=== PATIENT | male | born 1960 | race Caucasian/White ===

== ENCOUNTER 2021-02-06 10:00 | Emergency (ER) | payer BC, MEDICARE ==
[~2021-02-06] VITALS: Ht 185.4 cm; Wt 128.5 kg
[2021-02-06] MEDS ORDERED: IV NORMAL SALINE 1000ML BAG 1,000 ML IV SCH (10:30)
[2021-02-06] MEDS ORDERED: ONDANSETRON PF 4 MG/2 ML VIAL. IVP ONE (10:30)
[2021-02-06] MEDS ORDERED: MORPHINE SULFATE 10 MG/ML VIAL. IV ONE (10:30)
[2021-02-06 10:45] LABS: BASO # 0.1 x10^3/uL (0.0-0.2); BASO % 1 % (0-3); EOS # 0.1 x10^3/uL (0.0-0.7); EOS % 1 % (0-3); HEMATOCRIT 46.2 % (39.0-53.0); HEMOGLOBIN 16.3 g/dL (13.0-17.5); LYMPH # 1.8 x10^3/uL (1.0-4.8); LYMPH % 22 % (24-48); MEAN CORPUSCULAR HEMOGLOBIN 31 pg (25-35); MEAN CORPUSCULAR HGB CONC 35 g/dL (31-37); MEAN CORPUSCULAR VOLUME 88 fL (79-100); MONO # 0.7 x10^3/uL (0.0-1.1); MONO % 8 % (0-9); NEUT # 5.6 x10^3/uL (1.8-7.7); NEUT % 68 % (31-73); PLATELET COUNT 160 x10^3/uL (140-400); RED BLOOD COUNT 5.24 x10^6/uL (4.30-5.70); RED CELL DISTRIBUTION WIDTH 13.8 % (11.5-14.5); WHITE BLOOD COUNT 8.3 x10^3/uL (4.0-11.0)
[2021-02-06 10:52] LABS: CALCIUM 9.2 mg/dL (8.5-10.1); POTASSIUM 3.8 mmol/L (3.5-5.1)
--- NOTE | 2021-02-06 10:53 | PHYS DOC ---
Past Medical History Past Medical History: Depression, Diabetes-Type II, Hypertension Past Surgical History: Other Additional Past Surgical Histo: laproscopic hernia repair, L knee scope, L ankle and colon resection Smoking Status: Never Smoker Alcohol Use: Occasionally Drug Use: None General Adult EDM: Chief Complaint: ABDOMINAL PAIN HPI: HPI: Patient is a 60 year old male history of hypertension, diabetes and depression who presents with 4-day history of right lower quadrant abdominal pain. Patient states his pain is constant, sharp and cramping 910 without radiation. The pain is limited to the right lower quadrant and has not been migratory in nature. Patient reports associated nausea and anorexia, but denies emesis, diarrhea and constipation. He states he last ate a little bit yesterday, but otherwise has not had any food or drink. Patient denies family history of appendicitis. He reports he has not taken any of his medications today, including his blood pressure medication. Patient has no other complaints at this time. Review of Systems: Review of Systems: Constitutional: Denies fever or chills. Respiratory: Denies cough or shortness of breath. Cardiovascular: Denies chest pain or edema. GI: See HPI : Denies dysuria, hematuria. Musculoskeletal: Denies back pain or joint pain. Integument: Denies rash or other skin lesion. Neurologic: Denies headache, focal weakness or sensory changes. Endocrine: Denies polyuria or polydipsia. Psychiatric: Denies current feelings depression or anxiety. Heart Score: C/O Chest Pain: No Current Medications: Current Medications Medications (Trade) Dose Ordered Sig/[facility] Start Time Stop Time Status Last Admin Dose Admin Morphine Sulfate (Morphine Sulfate) 10 mg 1X ONCE 02/06/21 10:30 02/06/21 10:31 DC 02/06/21 10:38 10 MG Ondansetron HCl (Zofran) 4 mg 1X ONCE 02/06/21 10:30 02/06/21 10:31 DC 02/06/21 10:39 4 MG Sodium Chloride 1,000 ml @ 1,000 mls/hr Q1H 02/06/21 10:30 02/06/21 11:29 02/06/21 10:37 1,000 MLS/HR Allergies: Allergies: Allergies Coded Allergies Type Severity Reaction Last Updated Verified No Known Drug Allergies 11/20/13 No Physical Exam: PE: Constitutional: Well developed, well nourished, no acute distress, non-toxic appearance. HENT: Normocephalic, atraumatic, bilateral external ears normal, oropharynx moist, nose normal. Eyes: PERRLA, EOMI, conjunctiva normal, no discharge. Neck: Normal range of motion, no tenderness, supple, no stridor. Cardiovascular: Elevated heart rate regular rhythm, no murmur. Lungs & Thorax: Decreased breath sounds diffuse throughout lung casey. No wheezing rales or rhonchi appreciated. Abdomen: Bowel sounds normal, soft, right lower quadrant tenderness, McBurney's point tenderness, negative Rovsing sign, no peritoneal signs, no masses, no pulsatile masses. Skin: Warm, dry, no erythema, no rash. Back: No tenderness, no CVA tenderness. Extremities: No tenderness, no cyanosis, no clubbing, ROM intact, no edema. Current Patient Data: Labs: Laboratory Tests Test 02/06/21 10:20 02/06/21 12:50 White Blood Count 8.3 x10^3/uL (4.0-11.0) Red Blood Count 5.24 x10^6/uL (4.30-5.70) Hemoglobin 16.3 g/dL (13.0-17.5) Hematocrit 46.2 % (39.0-53.0) Mean Corpuscular Volume 88 fL (79-100) Mean Corpuscular Hemoglobin 31 pg (25-35) Mean Corpuscular Hemoglobin Concent 35 g/dL (31-37) Red Cell Distribution Width 13.8 % (11.5-14.5) Platelet Count 160 x10^3/uL (140-400) Neutrophils (%) (Auto) 68 % (31-73) Lymphocytes (%) (Auto) 22 % (24-48) Monocytes (%) (Auto) 8 % (0-9) Eosinophils (%) (Auto) 1 % (0-3) Basophils (%) (Auto) 1 % (0-3) Neutrophils # (Auto) 5.6 x10^3/uL (1.8-7.7) Lymphocytes # (Auto) 1.8 x10^3/uL (1.0-4.8) Monocytes # (Auto) 0.7 x10^3/uL (0.0-1.1) Eosinophils # (Auto) 0.1 x10^3/uL (0.0-0.7) Basophils # (Auto) 0.1 x10^3/uL (0.0-0.2) Sodium Level 137 mmol/L (136-145) Potassium Level 3.8 mmol/L (3.5-5.1) Chloride Level 97 mmol/L (98-107) Carbon Dioxide Level 28 mmol/L (21-32) Anion Gap 12 (6-14) Blood Urea Nitrogen 31 mg/dL (8-26) Creatinine 2.0 mg/dL (0.7-1.3) Estimated GFR (Cockcroft-Gault) 34.0 BUN/Creatinine Ratio 16 (6-20) Glucose Level 166 mg/dL (70-99) Lactic Acid Level 2.0 mmol/L (0.4-2.0) Calcium Level 9.2 mg/dL (8.5-10.1) Total Bilirubin 0.8 mg/dL (0.2-1.0) Aspartate Amino Transf (AST/SGOT) 13 U/L (15-37) Alanine Aminotransferase (ALT/SGPT) 23 U/L (16-63) Alkaline Phosphatase 100 U/L (46-116) Creatine Kinase 57 U/L (39-308) Troponin I Quantitative 0.026 ng/mL (0.000-0.055) C-Reactive Protein, Quantitative 2.2 mg/L (0-3.3) EV-Ozn-Y-Type Natriuretic Peptide 130 pg/mL (0-124) Total Protein 8.4 g/dL (6.4-8.2) Albumin 4.3 g/dL (3.4-5.0) Albumin/Globulin Ratio 1.0 (1.0-1.7) Urine Collection Type Unknown Urine Color Yellow Urine Clarity Clear Urine pH 5.0 (<5.0-8.0) Urine Specific Weir 1.020 (1.000-1.030) Urine Protein >=300 mg/dL (NEG-TRACE) Urine Glucose (UA) Negative mg/dL (NEG) Urine Ketones (Stick) 15 mg/dL (NEG) Urine Blood Large (NEG) Urine Nitrite Negative (NEG) Urine Bilirubin Small (NEG) Urine Urobilinogen Dipstick 1.0 mg/dL (0.2 mg/dL) Urine Leukocyte Esterase Negative (NEG) Urine RBC 6-10 /HPF (0-2) Urine WBC 0 /HPF (0-4) Urine Squamous Epithelial Cells Few /LPF Urine Bacteria 0 /HPF (0-FEW) Urine Hyaline Casts Many /HPF Vital Signs: Vital Signs Date Time Temp Pulse Resp B/P (MAP) Pulse Ox O2 Delivery O2 Flow Rate FiO2 02/06/21 10:38 16 93 Room Air 02/06/21 10:00 99.0 122 214/111 (145) 99.0 EKG: EKG: EKG Interpreted by Dr. Valentino: Tachycardia rate 113 bpm and rhythm with no ectopic beats. Right bundle branch block. QRS 140 ms, QTc [address]-T wave changes. Radiology/Procedures: Radiology/Procedures: PROCEDURE: PORTABLE CHEST 1V Site ID: [id number] EXAMINATION: XR CHEST 1V. HISTORY: 60 years Male Reason: low o2 saturation / Spl. Instructions: / History: . . COMPARISON: None. Findings: The heart is enlarged with the prominent interstitial markings likely related to vascular congestion.. There is no effusion or pneumothorax. The mediastinum and corey appear unremarkable. Impression: Cardiomegaly with mild vascular congestion. Electronically signed by: Cornelius Garcia MD (02/06/2021 11:35 AM) [id number] PROCEDURE: RIGHT LOWER QUANDRANT US ABDOMEN LIMITED History: Right lower quadrant tenderness Comparison: None. Technique: Sonographic examination of the right lower quadrant of the abdomen. Findings: Limited grayscale images of the right lower quadrant demonstrate bowel loops. No blind-ending tubular structures identified to suggest the appendix. Limited visualization due to bowel gas. No fluid collection or mass identified. Impression: 1. Very limited evaluation of the right lower quadrant without identification of the appendix. No fluid collection or mass seen. Electronically signed by: Preet Stewart MD (02/06/2021 12:11 PM) [id number] PROCEDURE: CT ABD PEL W/ORAL CONTRST ONLY CT ABDOMEN+PELVIS W INDICATION: rlq pain EXAM: Noncontrast CT of the abdomen and pelvis. Coronal and sagittal refo rmatted images were performed. PQRS compliance statement: One or more of the following individualized dose reduction techniques were utilized for this examination: 1. Automated exposure control 2. Adjustment of the mA and/or kV according to patient size 3. Use of iterative reconstruction technique COMPARISON: None FINDINGS: No free air, free fluid, or fluid collection. Lower chest: The visualized lower lungs are aerated. No pleural or pericardial effusion. ABDOMEN: Coarse calcification in the left lower quadrant mesentery anteriorly, probably old omental infarct. Liver: The noncontrast liver is homogeneous in attenuation. Gallbladder and biliary: Normal gallbladder without radiopaque stone. Normal caliber bile ducts. Spleen: Normal spleen. Pancreas: The noncontrast pancreas is homogeneous in attenuation without peripancreatic inflammatory changes. Adrenal glands: Normal adrenal glands. Kidneys and ureters: 14 x 12 mm calculus at the right ureteropelvic junction. No hydronephrosis. Additional right renal superior pole 6 mm calculus. Bilateral perinephric stranding, slightly greater on the right. GI tract: The stomach is decompressed and poorly evaluated. Normal caliber small bowel and colon. Colonic diverticulosis. Normal appendix. Vascular structures: Normal caliber abdominal aorta. Mild aortoiliac atherosclerotic disease. Lymph nodes: No lymphadenopathy in the abdomen or pelvis. PELVIS: Genitourinary system: Urinary bladder is partially distended. SKELETAL STRUCTURES AND SOFT TISSUES: No fracture or destructive lesion in the visualized skeleton. IMPRESSION: 1. 14 x 12 mm calculus at the right ureteropelvic junction. No hydronephrosis. 2. Bilateral perinephric stranding, more pronounced on the right. This is nonspecific, but can seen with medical renal disease. Electronically signed by: Sea Chilel MD (02/06/2021 2:49 PM) [id number] Course & Med Decision Making: Course & Med Decision Making Pertinent Labs and Imaging studies reviewed. (See chart for details) Patient presentation is suspicious for appendicitis. Patient was provided with Zofran and morphine while waiting for CT. Patient's creatinine elevated, so right lower quadrant ultrasound will be ordered to evaluate for appendicitis. Ultrasound was inconclusive, so CT w/oral contrast only will be performed. However, patient does not have leukocytosis or elevated neutrophil count, so appendicitis seems less likely. Additionally, patient developed shortness of breath and hypoxia in the department. Chest x-ray shows pulmonary congestion, patient is likely in early stages health failure with hypertensive emergency. Hospitalist contacted to discuss patient case and further management. Abdomen pelvis CT scan results came back with a 14 x 12 mm renal calculus on the right side. Due to the fact that this facility does not have urology, patient will need to be transferred. [facility] accepted patient to med/tele. [facility] [employer] requested 40 IV furosemide prior to transfer. Admitting physician is Dr. Hua. Rios Disclaimer: Rios Disclaimer: This electronic medical record was generated, in whole or in part, using a voice recognition dictation system. Departure Departure Impression: Primary Impression: Obstructive uropathy Additional Impressions: Hypertensive emergency Respiratory failure with hypoxia Qualified Codes: J96.01 - Acute respiratory failure with hypoxia Disposition: 02 SHORT TERM HOSPITAL Admitting Physician: DEENA Gilbert) Condition: GUARDED DIMITRI ESPINAL Feb 06, 2021 10:53
[2021-02-06 10:58] LABS: ALBUMIN 4.3 g/dL (3.4-5.0); C-REACTIVE PROTEIN 2.2 mg/L (0-3.3); TOTAL BILIRUBIN 0.8 mg/dL (0.2-1.0); TOTAL PROTEIN 8.4 g/dL (6.4-8.2)
--- NOTE | 2021-02-06 11:38 | RAD ---
Site ID: [id number] EXAMINATION: XR CHEST 1V. HISTORY: 60 years Male Reason: low o2 saturation / Spl. Instructions: / History: . . COMPARISON: None. Findings: The heart is enlarged with the prominent interstitial markings likely related to vascular c ongestion.. There is no effusion or pneumothorax. The mediastinum and corey appear unremarkable. Impression: Cardiomegaly with mild vascular congestion. Electronically signed by: Cornelius Garcia MD (02/06/2021 11:35 AM) [id number]
--- NOTE | 2021-02-06 12:13 | RAD ---
US ABDOMEN LIMITED History: Right lower quadrant tenderness Comparison: None. Technique: Sonographic examination of the right lower quadrant of the abdomen. Findings: Limited grayscale images of the right lower quadrant demonstrate bowel loops. No blind-ending tubular structures identified to suggest the appendix. Limited visualization due to bowel gas. No fluid shelton ection or mass identified. Impression: 1. Very limited evaluation of the right lower quadrant without identification of the appendix. No fl uid collection or mass seen. Electronically signed by: Preet Stewart MD (02/06/2021 12:11 PM) [id number]
[2021-02-06] MEDS ORDERED: IOHEXOL 240 MG/ML 50ML VIAL. PO ONE (12:45)
[2021-02-06] MEDS ORDERED: CONTRAST GIVEN. MC PRN (13:00)
[2021-02-06] MEDS ORDERED: LABETALOL 20 MG/4 ML DISP.SYRIN. IVP ONE (13:00)
[2021-02-06] MEDS ORDERED: MORPHINE SULFATE 2 MG/ML INJ. IV PRN (13:00)
[2021-02-06] MEDS ORDERED: NITROGLYCERIN OINT 1 GM PACKET. TP ONE (13:00)
[2021-02-06] MEDS ORDERED: MORPHINE SULFATE 4 MG/ML INJ. IVP PRN (13:00)
--- NOTE | 2021-02-06 13:01 | PDOC1 ---
History and Physical Date of Admission Date of Admission DATE: 02/06/21 TIME: 13:01 Identification/Chief Complaint Chief Complaint Right flank pain Source Source: Patient History of Present Illness History of Present Illness Mr Dimas is a 60 year old male history of hypertension, diabetes and depression who presents with 4-day history of right lower quadrant abdominal pain that is colicky. Patient states his pain is constant, sharp and cramping 10 with radiation into his groin. Not changed by food. Patient reports associated nausea and anorexia, but denies emesis, diarrhea and constipation. He states he last ate a little bit yesterday, but otherwise has not had any food or drink. Patient denies family history of appendicitis. He does have a history of colectomy due to prior perforated diverticulitis as well as a ventral hernia mesh. No history of nephrolithiasis. He does have a history of diabetes and prior CVA for which he is on disability. Blood pressure 194/111 given Nitropaste with some improvement. Labs WBC 8.3, Hb 16.3, platelets 160, NA 137, K3.8, BUN 31, CR 2, glucose 166, troponin 0.026, NT proBNP 130, urinalysis with large blood and protein. Abdominal ultrasound nonspecific. Chest radiograph with no significant findings. Noncontrast CT abdomen pelvis performed with 14 x 11 UPJ stone on the right with no hydronephrosis. Called for admission, however we do not have urology services at [place]. Past Medical History Cardiovascular: HTN Endocrine: Diabetes Past Surgical History Past Surgical History: Colon Resection, Other (left ankle, left thumb) Family History Family History: Diabetes, High Cholestrol, Hypertension Social History Smoke: No ALCOHOL: rare Drugs: None Current Problem List Problem List Problems Medical Problems: (1) Respiratory failure with hypoxia Status: Acute Current Medications Current Medications Current Medications Sodium Chloride 1,000 ml @ 1,000 mls/hr Q1H IV Last administered on 02/06/21at 10:37; Start 02/06/21 at 10:30; Stop 02/06/21 at 11:29 Ondansetron HCl (Zofran) 4 mg 1X ONCE IVP Last administered on 02/06/21at 10:39; Start 02/06/21 at 10:30; Stop 02/06/21 at 10:31; Status DC Morphine Sulfate (Morphine Sulfate) 10 mg 1X ONCE IV Last administered on 02/06/21at 10:38; Start 02/06/21 at 10:30; Stop 02/06/21 at 10:31; Status DC Iohexol (Omnipaque 240 Mg/ml) 50 ml 1X ONCE PO ; Start 02/06/21 at 12:45; Stop 02/06/21 at 12:46 Info (CONTRAST GIVEN -- Rx MONITORING) 1 each PRN DAILY PRN MC SEE COMMENTS; Start 02/06/21 at 13:00; Stop 02/08/21 at 12:59 Labetalol HCl (Normodyne Iv Push) 20 mg 1X ONCE IVP ; Start 02/06/21 at 13:00; Stop 02/06/21 at 13:01 Allergies Allergies: Coded Allergies: No Known Drug Allergies (Unverified , 11/20/13) ROS General: YES: Fatigue, Malaise, Appetite; No: Chills, Night Sweats, Other PSYCHOLOGICAL ROS: No: Anxiety, Behavioral Disorder, Concentration difficultie, Decreased libido, Depression, Disorientation, Hallucinations, Hostility, Irritablity, Memory difficulties, Mood Swings, Obsessive thoughts, Physical abuse, Sexual abuse, Sleep disturbances, Suicidal ideation, Other Eyes: No Blurry vision, No Decreased vision, No Double vision, No Dry eyes, No Excessive tearing, No Eye Pain, No Itchy Eyes, No Loss of vision, No Photophobia, No Scotomata, No Uses contacts, No Uses glasses, No Other HEENT: No: Heacaches, Visual Changes, Hearing change, Nasal congestion, Nasal discharge, Oral lesions, Sinus pain, Sore Throat, Epistaxis, Sneezing, Snoring, Tinnitus, Vertigo, Vocal changes, Other ALLERGY AND IMMUNOLOGY: No: Hives, Insect Bite Sensitivity, Itchy/Watery Eyes, Nasal Congestion, Post Nasal Drip, Seasonal Allergies, Other Hematological and Lymphatic: No: Bleeding Problems, Blood Clots, Blood Transfusions, Brusing, Night Sweats, Pallor, Swollen Lymph Nodes, Other ENDOCRINE: No: Breast Changes, Galactorrhea, Hair Pattern Changes, Hot Flashes, Malaise/lethargy, Mood Swings, Palpitations, Polydipsia/polyuria, Skin Changes, Temperature Intolerance, Unexpected Weight Changes, Other Breast: No New/Changing Breast Lumps, No Nipple changes, No Nipple discharge, No Other Respiratory: No: Cough, Hemoptysis, Orthopnea, Pleuritic Pain, Shortness of breath, SOB with excertion, Sputum Changes, Stridor, Tachypnea, Wheezing, Other Cardiovascular: No Chest Pain, No Palpitations, No Orthopnea, No Paroxysmal Noc. Dyspnea, No Edema, No Lt Headedness, No Other Gastrointestinal: Yes Nausea, Yes Abdominal Pain; No Vomiting, No Diarrhea, No Constipation, No Melena, No Hematochezia, No Other Genitourinary: YES Hematuria; No Dysuria, No Frequency, No Incontinence, No Retention, No Discharge, No Urgency, No Pain, No Flank Pain, No Other, No , No , No , No , No , No , No Musculoskeletal: No Gait Disturbance, No Joint Pain, No Joint Stiffness, No Joint Swelling, No Muscle Pain, No Muscular Weakness, No Pain In:, No Swelling In:, No Other Neurological: No Behavorial Changes, No Bowel/Bladder ControlChng, No Confusion, No Dizziness, No Gait Disturbance, No Headaches, No Impaired Coord /balance, No Memory Loss, No Numbness/Tingling, No Seizures, No Speech Problems, No Tremors, No Visual Changes, No Weakness, No Other Skin: No Dry Skin, No Eczema, No Hair Changes, No Lumps, No Mole Changes, No Mottling, No Nail Changes, No Pruritus, No Rash, No Skin Lesion Changes, No Other, No Acne Physical Exam General: Alert, Oriented X3, Cooperative, moderate distress HEENT: Atraumatic, PERRLA, EOMI, Mucous membr. moist/pink Lungs: Clear to auscultation, Normal air movement Heart: S1S2, RRR, no thrills, no rubs Abdomen: Normal bowel sounds, Soft, No hepatosplenomegaly, No masses, Other (Right flank tenderness) Rectal Exam: not examined Extremities: No clubbing, No cyanosis, No edema, Normal pulses, No tenderness/swelling Skin: No rashes, No breakdown, No significant lesion Neuro: Normal gait, Normal speech, Strength at 5/5 X4 ext, Normal tone, Sensation intact, Cranial nerves 3-12 NL, Reflexes 2+ Psych/Mental Status: Mental status NL, Mood NL Vitals Vitals Vital Signs Date Time Temp Pulse Resp B/P (MAP) Pulse Ox O2 Delivery O2 Flow Rate FiO2 02/06/21 12:08 92 16 208/95 (132) 94 Nasal Cannula 2.0 02/06/21 10:00 99.0 99.0 Labs Labs Laboratory Tests Test 02/06/21 10:20 White Blood Count 8.3 x10^3/uL (4.0-11.0) Red Blood Count 5.24 x10^6/uL (4.30-5.70) Hemoglobin 16.3 g/dL (13.0-17.5) Hematocrit 46.2 % (39.0-53.0) Mean Corpuscular Volume 88 fL (79-100) Mean Corpuscular Hemoglobin 31 pg (25-35) Mean Corpuscular Hemoglobin Concent 35 g/dL (31-37) Red Cell Distribution Width 13.8 % (11.5-14.5) Platelet Count 160 x10^3/uL (140-400) Neutrophils (%) (Auto) 68 % (31-73) Lymphocytes (%) (Auto) 22 % (24-48) Monocytes (%) (Auto) 8 % (0-9) Eosinophils (%) (Auto) 1 % (0-3) Basophils (%) (Auto) 1 % (0-3) Neutrophils # (Auto) 5.6 x10^3/uL (1.8-7.7) Lymphocytes # (Auto) 1.8 x10^3/uL (1.0-4.8) Monocytes # (Auto) 0.7 x10^3/uL (0.0-1.1) Eosinophils # (Auto) 0.1 x10^3/uL (0.0-0.7) Basophils # (Auto) 0.1 x10^3/uL (0.0-0.2) Sodium Level 137 mmol/L (136-145) Potassium Level 3.8 mmol/L (3.5-5.1) Chloride Level 97 mmol/L (98-107) Carbon Dioxide Level 28 mmol/L (21-32) Anion Gap 12 (6-14) Blood Urea Nitrogen 31 mg/dL (8-26) Creatinine 2.0 mg/dL (0.7-1.3) Estimated GFR (Cockcroft-Gault) 34.0 BUN/Creatinine Ratio 16 (6-20) Glucose Level 166 mg/dL (70-99) Lactic Acid Level 2.0 mmol/L (0.4-2.0) Calcium Level 9.2 mg/dL (8.5-10.1) Total Bilirubin 0.8 mg/dL (0.2-1.0) Aspartate Amino Transf (AST/SGOT) 13 U/L (15-37) Alanine Aminotransferase (ALT/SGPT) 23 U/L (16-63) Alkaline Phosphatase 100 U/L (46-116) Creatine Kinase 57 U/L (39-308) C-Reactive Protein, Quantitative 2.2 mg/L (0-3.3) Total Protein 8.4 g/dL (6.4-8.2) Albumin 4.3 g/dL (3.4-5.0) Albumin/Globulin Ratio 1.0 (1.0-1.7) Laboratory Tests Test 02/06/21 10:20 White Blood Count 8.3 x10^3/uL (4.0-11.0) Red Blood Count 5.24 x10^6/uL (4.30-5.70) Hemoglobin 16.3 g/dL (13.0-17.5) Hematocrit 46.2 % (39.0-53.0) Mean Corpuscular Volume 88 fL (79-100) Mean Corpuscular Hemoglobin 31 pg (25-35) Mean Corpuscular Hemoglobin Concent 35 g/dL (31-37) Red Cell Distribution Width 13.8 % (11.5-14.5) Platelet Count 160 x10^3/uL (140-400) Neutrophils (%) (Auto) 68 % (31-73) Lymphocytes (%) (Auto) 22 % (24-48) Monocytes (%) (Auto) 8 % (0-9) Eosinophils (%) (Auto) 1 % (0-3) Basophils (%) (Auto) 1 % (0-3) Neutrophils # (Auto) 5.6 x10^3/uL (1.8-7.7) Lymphocytes # (Auto) 1.8 x10^3/uL (1.0-4.8) Monocytes # (Auto) 0.7 x10^3/uL (0.0-1.1) Eosinophils # (Auto) 0.1 x10^3/uL (0.0-0.7) Basophils # (Auto) 0.1 x10^3/uL (0.0-0.2) Sodium Level 137 mmol/L (136-145) Potassium Level 3.8 mmol/L (3.5-5.1) Chloride Level 97 mmol/L (98-107) Carbon Dioxide Level 28 mmol/L (21-32) Anion Gap 12 (6-14) Blood Urea Nitrogen 31 mg/dL (8-26) Creatinine 2.0 mg/dL (0.7-1.3) Estimated GFR (Cockcroft-Gault) 34.0 BUN/Creatinine Ratio 16 (6-20) Glucose Level 166 mg/dL (70-99) Lactic Acid Level 2.0 mmol/L (0.4-2.0) Calcium Level 9.2 mg/dL (8.5-10.1) Total Bilirubin 0.8 mg/dL (0.2-1.0) Aspartate Amino Transf (AST/SGOT) 13 U/L (15-37) Alanine Aminotransferase (ALT/SGPT) 23 U/L (16-63) Alkaline Phosphatase 100 U/L (46-116) Creatine Kinase 57 U/L (39-308) C-Reactive Protein, Quantitative 2.2 mg/L (0-3.3) Total Protein 8.4 g/dL (6.4-8.2) Albumin 4.3 g/dL (3.4-5.0) Albumin/Globulin Ratio 1.0 (1.0-1.7) VTE Prophylaxis Ordered VTE Prophylaxis Devices: No VTE Pharmacological Prophylaxi: No Assessment/Plan Assessment/Plan A/P: Intractable abdominal pain - due to right nephrolithiasis. 11x14 stone too large to pass, inappropriate to admit to a hospital without urology services, recommend ED to ED transfer [facility] - likely vasomotor nephropathy from poor po intake and right renal obstruction DM2 - sliding scale HTN urgency - nitropaste Elevated troponin - likely demand ischemia, cont trending troponins, NTG helping FEN - NPO PPX - SCDs FULL CODE Dispo - transfer from ED, [facility] as we do not have urology services Justifications for Admission Abdominal Pain Indications Hemodynamically unstable?: Yes Justification for admission: Patient is hemodynamically unstable as indicated by persistent tachycardia (of.), or hypotension (of..) or orthostatic vitalsigns (of..) despite approapriate treatment. Other Justification CARROL BAKER MD Feb 06, 2021 13:01
[2021-02-06 13:04] LABS: BILIRUBIN,URINE SMALL (NEG); CLARITY,URINE CLEAR; COLOR,URINE YELLOW; NITRITE,URINE NEGATIVE (NEG); PROTEIN,URINE >=300 mg/dL (NEG-TRACE)
[2021-02-06 13:27] LABS: BACTERIA,URINE 0 /HPF (0-FEW); WBC,URINE 0 /HPF (0-4)
[2021-02-06 13:28] LABS: HYALINE CASTS, URINE MANY /HPF
--- NOTE | 2021-02-06 14:51 | RAD ---
CT ABDOMEN+PELVIS W INDICATION: rlq pain EXAM: Noncontrast CT of the abdomen and pelvis. Coronal and sagittal reformatted images were perform ed. PQRS compliance statement: One or more of the following individualized dose reduction techniques were utilized for this examinat ion: 1. Automated exposure control 2. Adjustment of the mA and/or kV according to patient size 3. Use of iterative reconstruction technique COMPARISON: None FINDINGS: No free air, free fluid, or fluid collection. Lower chest: The visualized lower lungs are aerated. No pleural or pericardial effusion. ABDOMEN: Coarse calcification in the left lower quadrant mesentery anteriorly, probably old omental infarct. Liver: The noncontrast liver is homogeneous in attenuation. Gallbladder and biliary: Normal gallbladder without radiopaque stone. Normal caliber bile ducts. Spleen: Normal spleen. Pancreas: The noncontrast pancreas is homogeneous in attenuation without peripancreatic inflammatory changes. Adrenal glands: Normal adrenal glands. Kidneys and ureters: 14 x 12 mm calculus at the right ureteropelvic junction. No hydronephrosis. Harsh tional right renal superior pole 6 mm calculus. Bilateral perinephric stranding, slightly greater on the right. GI tract: The stomach is decompressed and poorly evaluated. Normal caliber small bowel and colon. Col onic diverticulosis. Normal appendix. Vascular structures: Normal caliber abdominal aorta. Mild aortoiliac atherosclerotic disease. Lymph nodes: No lymphadenopathy in the abdomen or pelvis. PELVIS: Genitourinary system: Urinary bladder is partially distended. SKELETAL STRUCTURES AND SOFT TISSUES: No fracture or destructive lesion in the visualized skeleton. IMPRESSION: 1. 14 x 12 mm calculus at the right ureteropelvic junction. No hydronephrosis. 2. Bilateral perinephric stranding, more pronounced on the right. This is nonspecific, but can seen w ith medical renal disease. Electronically signed by: Sea Chilel MD (02/06/2021 2:49 PM) [id number]
--- NOTE | 2021-02-06 16:09 | RAD ---
EXAMINATION: US RENAL ARTERY DUPLEX INDICATION: 60 years, Male, acute kidney injury, hypertensive emergency, concerning for renal etiolog y. COMPARISON: None TECHNIQUE: Grayscale, color and spectral doppler evaluation of the kidneys and renal arteries was per formed. FINDINGS: Limited exam due to patient's body habitus and overlying bowel gas. AORTIC VELOCITY: 1 28 cm/second RIGHT KIDNEY: MEASURES: 13.3 cm in length. MORPHOLOGY/PARENCHYMA: Normal corticomedullary differentiation with no shadowing calculus or discrete masses. COLLECTING SYSTEM: No hydronephrosis. RIGHT SEGMENTAL ARTERY RESISTIVE INDEX: 0.7 SEGMENTAL RENAL ARTERY WAVEFORMS: Normal. RIGHT RENAL ARTERY PEAK SYSTOLIC AND END DIASTOLIC VELOCITIES IN CM/S: PROX PSV/EDV: Obscured by bowel gas. MID PSV/EDV: 76 cm/s. DISTAL PSV/EDV: 99 cm/s. RENAL VEIN: Patent. Right renal artery/aorta: 0.77 LEFT KIDNEY: MEASURES: 12.7 cm in length. MORPHOLOGY/PARENCHYMA: Normal corticomedullary differentiation with no shadowing calculus or discrete masses. COLLECTING SYSTEM: No hydronephrosis. LEFT SEGMENTAL ARTERY RESISTIVE INDEX: 0.68 SEGMENTAL RENAL ARTERY WAVEFORMS: Normal LEFT RENAL ARTERY PEAK SYSTOLIC AND END DIASTOLIC VELOCITIES IN CM/S: PROX PSV/EDV: 63 cm/s. MID PSV/EDV: 69 cm/s. DISTAL PSV/EDV: 79 cm/s. RENAL VEIN: Patent Left renal artery/aorta: 0.61 OTHER: Underdistended which limits evaluation. IMPRESSION: 1. No evidence of renal artery stenosis bilaterally. 2. Unremarkable sonographic appearance of the kidneys. Electronically signed by: Erick Craft MD (02/06/2021 4:06 PM) [id number]
[2021-02-06] MEDS ORDERED: FUROSEMIDE 40 MG/4 ML VIAL. IVP ONE (17:15)
[2021-02-06 20:31] VITALS: BP 169/96
== END 2021-02-06 20:40 | disposition short-term general hospital (02) ==
LOC: ER 10:00
DX: N13.9 Obstructive and reflux uropathy, unspecified (principal); Z20.822 Contact with and (suspected) exposure to COVID-19; I16.1 Hypertensive emergency; J96.01 Acute respiratory failure with hypoxia; E11.9 Type 2 diabetes mellitus without complications; I10 Essential (primary) hypertension
CPT/HCPCS: 36415; 71045; 74176; 80053; 81001; 82550; 83605; 83880; 84484; 85025; 86140; 87040; 87426; 93975; 96361; 96374; 96375; 99285; J1940; J2270; J2405; J3490; J7030; Q9966; U0003; U0005